=== PATIENT | male | born 1960 | race Caucasian/White ===

== ENCOUNTER 2021-05-15 10:36 | Day surgery (SDC) | payer BC ==
[~2021-05-15 10:36] MED LIST: Metoclopramide 10 MG/2 ML SDV IV PRN
[2021-05-15] MEDS: Sodium Chloride 0.9% 1,000 ML IV SCH (11:20)
[2021-05-15] MEDS ORDERED: Propofol 200 MG/20 ML SDV ONE (13:10)
[2021-05-15] MEDS ORDERED: Glycopyrrolate 0.2 MG/ML 2 ML SDV ONE (13:10)
--- NOTE | 2021-05-15 19:12 | OR ---
DATE OF OPERATION: 05/15/2021 SURGEON: Quinn Singleton MD PREOPERATIVE DIAGNOSIS: Surveillance colonoscopy. POSTOPERATIVE DIAGNOSIS: Surveillance colonoscopy. PROCEDURE: Colonoscopy with polypectomy x2. ANESTHESIA: MAC. ESTIMATED BLOOD LOSS: Minimal. COMPLICATIONS: None. INDICATION FOR THE PROCEDURE: Patient is a 61-year-old male who has had 2 previous colonoscopies. He was found to have polyps on the first one. On a surveillance colonoscopy 7 years ago, no signs of polyps. He denies any change in bowel habits since that time. DESCRIPTION OF PROCEDURE: Informed consent was obtained from the patient. The patient was taken to the operating room, placed on the table in left lateral decubitus position. Monitored anesthesia care was administered. Digital rectal exam performed and was normal. Colonoscope then advanced through the anus directed toward the cecum. Cecum was reached and identified by appendiceal orifice and ileocecal valve. Colonoscope then slowly withdrawn. He did have a small sessile polyp in the proximal ascending colon. This was removed with hot snare polypectomy. This polyp was retrieved. Also noted to have a small sessile polyp in the sigmoid colon. This was resected, however, was unable to be retrieved. Blood loss for both of these was minimal. Also had some mild diverticulosis in the sigmoid colon. The rectum was, otherwise, unremarkable. Colonoscope was then withdrawn. FINDINGS: Colon polyps x2 and sigmoid diverticulosis. RECOMMENDATIONS: We would recommend repeat surveillance colonoscopy in 5 years. I would also recommend high-fiber diet and plenty water and avoiding constipation for his diverticulosis. HOMA/KOREY /[id number]
== END 2021-05-15 14:08 | disposition home or self-care (01) ==
LOC: LB.SDS 10:36
PROVIDERS: ATTEND Surgery
DX: Z12.11 Encounter for screening for malignant neoplasm of colon (principal); D12.2 Benign neoplasm of ascending colon; K57.30 Diverticulosis of large intestine without perforation or abscess without bleeding; I10 Essential (primary) hypertension; E11.9 Type 2 diabetes mellitus without complications; Z86.010 Personal history of colon polyps
CPT/HCPCS: 45385; 82947; J2704; J3490; J7030